=== PATIENT | male | born 1980 | race Caucasian/White ===

== ENCOUNTER 2024-04-13 08:40 | Day surgery (SDC) | payer OTHER ==
[~2024-04-13] VITALS: Ht 172.7 cm; Wt 70.3 kg
[2024-04-13] MEDS ORDERED: fentaNYL citrate 0.05 MG/ML VIAL ONE (11:03)
[2024-04-13] MEDS: fentaNYL citrate 0.05 MG/ML VIAL IVP ONE (11:07)
[2024-04-13] MEDS: LIDOCAINE 2% 100 MG/5 ML UJET TP ONE (11:12)
== END 2024-04-13 12:10 | disposition home or self-care (01) ==
LOC: MDS 08:40 → MMU 08:42 → MDS 12:10
PROVIDERS: ATTEND Internal Medicine Gastroenterology
DX: Z12.11 Encounter for screening for malignant neoplasm of colon (principal); K63.5 Polyp of colon; E11.9 Type 2 diabetes mellitus without complications; Z79.899 Other long term (current) drug therapy
CPT/HCPCS: 45385; 82948; J3010